=== PATIENT | female | born 1950 | race Caucasian/White ===

== ENCOUNTER 2023-07-19 09:00 | Outpatient (RCR) | payer MEDICARE, SELFPAY ==
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
--- NOTE | 2023-07-19 14:36 | HP.PTREVAL_ITS ---
Re-Evaluation Intro: YOBANI Pastrana, It has been my pleasure to treat GURDEEP AVALOS over the last 10 visits for CERVICAL MYOFASCIAL & R SHLD STRAIN. R SHLD CONTUSION. Please see the progress note below for an update on the physical therapy plan of care! Subjective Subjective: PATIENT REPORTS SOME IMPROVEMENT IN HER PAIN AND FUNCTION SINCE STARTING PT. PATIENT REPORTS SHE HAS TRIED NOT TO PAMPER IT AND HAS TRIED TO DO WHAT SHE NORMALLY DOES BUT HER PAIN AND WEAKNESS LIMITS HER. SHE REPORTS THE [facility] AND [facility] REALLY SEEMED TO HELP. PATIENT REPORTS SHE CONSULTED DR. LOVELL AT [facility] 07/08/23. MRI RECOMMENDED. HAD MRI OF R SHLD Wednesday07/17/23 - AWAITING RESULTS. Objective Objective/Function: PATIENT WAS SEEN TODAY FOR RE-ASSESSMENT OF PROGRESS TOWARD THE SET PT GOALS AND THE NEED FOR FURTHER PHYSICAL THERAPY VS READINESS FOR DISCHARGE. PATIENT HAS MADE PROGRESS WITH PT BUT STILL HAS SIGNIFICANT L UE DEFICITS. PATIENT AWAITING MRI RESULTS AND DR. LOVELL'S RECOMMENDATIONS. UPON EXAM TODAY: ROM deficit: L UE WFL AND PATIENT DENIES INCREASED PAIN WITH TESTING. R SHLD ACTIVE FLEX 155 DEG, ABD 142 DEG, SUPINE IR 75 DEG AND ER 83 DEG. (IR/ER TESTED WITH 65 DEG ABD). C/O CATCHING R SHLD PAIN WITH R SHLD ROM TESTING ALL PLANES. Motor deficit: L SHLD 4+/5, ELBOW 5/5. R SHLD FLEX 3-/5, ABD 2+/5, IR 3+/5, ER 2+/5. R ELBOW 4-/5. 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 Reflexes: 2/3 SANDY UE'S. Cervical Mvmt Loss: Flex: MIN Pro: NIL Ext: MOD Ret: MOD RSB: MOD LSB: MOD R Rot: MIN L Rot: MIN PATIENT DENIES HEAD AND NECK PAIN WITH CERVICAL ROM TESTING ALL PLANES TODAY BUT SHE DOES REPORT MILD R SHLD AND LATERAL ARM PAIN TO ELBOW WITH R CERVICAL ROTATION TESTING. Postural strength: POOR Palpation: R UPPER TRAP, SUPRASPINATUS AND DELTOID TENDERNESS. DENIES CERVICAL SPINE AND OCCIPUT TENDERNESS. Plan Plan Plan: HOLD PT PENDING MRI RESULTS AND SURGEON RECOMMENDATIONS. PATIENT TO CALL WITH UPDATE. Balance/Gait/Functional tests Balance/Special Test Scores Oswestry Neck Score: 7 Quick DASH Score: 31.8175 Goals Goals Goal 1:: PATIENT WILL REPORT DECREASED NECK AND SHLD PAIN BY 25% OR MORE TO EASE ADL'S. Goal Time Frame: 4-6 Weeks Goal Progress: Goal Met Goal 2:: PATIENT WILL DEMONSTRATE A MCID OF > OR EQUAL TO 15 POINTS ON THEIR QUICK DASH SCORE TO IDENTIFY AN INCREASE IN THEIR UE FUNCTION TO AID IN RETURN TO PLOF. Goal Time Frame: 4-6 Weeks Goal Progress: Progressing Goal 3:: PATIENT WILL DEMONSTRATE A MCID OF > OR EQUAL TO 5 POINTS ON THEIR KIMBERLY NECK SCORE TO IDENTIFY A DECREASE IN THEIR NECK DISABILITY TO AID IN RETURN TO PLOF. Goal Time Frame: 4-6 Weeks Goal Progress: Goal Met Goal 4:: PATIENT WILL DEMONSTRATE 10 DEG OF INCREASED R SHLD ROM ALL PLANES TO EASE ADL'S Goal Time Frame: 4-6 Weeks Goal Progress: Goal Met Goal 5:: PATIENT WILL DEMONSTRATE INCREASED R SHLD STRENGTH SANDY ONE MUSCLE GRADE TO EASE ADLS'. Goal Time Frame: 4-6 Weeks Goal Progress: Progressing Goal 6:: PATIENT WILL BE INDEP WITH [facility] FOR CONTINUED IMPROVEMENT ONCE FORMAL PHYSICAL THERAPY CONCLUDES. Goal Time Frame: 4-6 Weeks Goal Progress: Progressing Anticipated Interventions Anticipated Interventions Patient/Client Instruction: Educate patient on: Condition, Plan of Care and Risk Factors For the Purpose of:: To improve self management Therapeutic Exercise to Include: Strength training, Body mechanics, Postural training, Flexibilty training, Neuromotor development, Passive ROM, Active ROM and Scapular Strength/Stabilization For the Purpose of:: To decrease pain, To increase ROM, To improve muscle performance and motor function, To increase tolerance to activity/condition/position and To improve ability of physical actions for home/community/work/leisure Manual Therapy Techniques to Include: Mobilization, Passive ROM and Soft tissue mobilization For the Purpose of:: To decrease pain, To increase ROM and To improve nutrient delivery to tissue Thermo therapy (hot pack): Yes Ultrasound (thermal/non thermal): Yes For the Purpose of:: To decrease pain and To improve nutrient delivery to tissue Re-Evaluation Ending Re-evaluation ending: Please do not hesitate to contact me at [phone] by phone or if you have questions or concerns regarding this new plan of care! Sincerely, Nano Junior, PT, Cert MDT
== END 2023-07-19 19:00 | disposition home or self-care (01) ==
LOC: PT 09:00
PROVIDERS: PCP Internal Medicine; Visit Provider Physician Assistant
DX: S16.1XXD Strain of muscle, fascia and tendon at neck level, subsequent encounter (principal); S46.911D Strain of unspecified muscle, fascia and tendon at shoulder and upper arm level, right arm, subsequent encounter; S40.011D Contusion of right shoulder, subsequent encounter
CPT/HCPCS: 97035; 97110; 97140; 97162; 97164; 97530

== ENCOUNTER → 2024-01-21 | Outpatient (CLI) | payer MEDICARE, SELFPAY ==
--- NOTE | 2024-01-21 10:26 | BI_ITS ---
MAMMOGRAPHY - BILATERAL SCREENING REASON FOR EXAM: Female, 73 years old. Routine annual screening examination. PERTINENT HISTORY: Non-contributory. TECHNIQUE: Digital bilateral breast vanessa (3D mammographic acquisition) in the CC and MLO projections. 2-D mediolateral oblique (MLO) and craniocaudad (CC) views of both breasts were obtained. CAD: Full Field Digital Mammography with Computer Added Detection was performed. COMPARISON: Comparison is made with prior study dated June 27, 2015. FINDINGS: Breast Composition: The breasts are heterogeneously dense, which may obscure small masses. There is a 7.6 mm x 3.4 mm nodular density in the central slightly medial aspect of the left breast. Correlation with ultrasound is recommended for further evaluation. No other significant abnormalities are identified. BI/SCRN MAMM (CAD)W/VANESSA BILAT IMPRESSION: 7.6 mm x 3.4 mm nodular density in the central slightly medial aspect of the left breast. Correlation with ultrasound is recommended. ASSESSMENT CATEGORY: BIRADS Category 0: Incomplete. Need additional imaging evaluation. A letter regarding these results will be sent to the patient by the facility within 30 days. Approximately 10% of breast cancers are not detected by mammography. A normal mammogram should not delay biopsy of a clinically suspicious abnormality. [id number] Electronically Signed: Tod Daigle MD at 12:51 EDT ,
== END | disposition home or self-care (01) ==
DX: Z12.31 Encounter for screening mammogram for malignant neoplasm of breast (principal)
CPT/HCPCS: 77063; 77067

== ENCOUNTER → 2024-02-07 | Outpatient (CLI) | payer MEDICARE, SELFPAY ==
--- NOTE | 2024-02-07 12:26 | US_ITS ---
STUDY: ULTRASOUND BREAST - LEFT REASON FOR EXAM: Female, 73 years old. Abnormal screening mammogram. TECHNIQUE: Axial and longitudinal images of the LEFT breast were performed with a high resolution ultrasound transducer. # OF IMAGES: 38 COMPARISON: Comparison is made with prior mammogram dated January 21, 2024. FINDINGS: LEFT Breast: The retroareolar region of the left breast was examined with ultrasound. There is evidence of dilated retroareolar ducts. Routine mammographic follow-up is recommended. US/Breast Limited Unilateral IMPRESSION: Dilated retroareolar ducts. ASSESSMENT CATEGORY: BIRADS Category 2: Benign. A letter regarding these results will be sent to the patient by the facility within 30 days. Electronically Signed: Tod Daigle MD at 14:12 EDT ,
== END | disposition home or self-care (01) ==
LOC: OPUS 12:25
DX: R92.8 Other abnormal and inconclusive findings on diagnostic imaging of breast (principal)
CPT/HCPCS: 76642